=== PATIENT | female | born 2000 | race Caucasian/White ===

== ENCOUNTER 2023-11-12 17:56 | Emergency (ER) | payer BC ==
[~2023-11-12] VITALS: Ht 154.9 cm; Wt 68.0 kg
[2023-11-12 18:40] VITALS: BP 110/68; TEMP 98.2; O2SAT 98
[2023-11-12] MEDS ORDERED: FLUORESCEIN SODIUM OPHTH 1 EA STRIP ONE (19:43)
[2023-11-12] MEDS ORDERED: TETRAcaine 5 ML BOTTLE ONE (19:43)
[2023-11-12] MEDS: TETRAcaine 5 ML BOTTLE EACHEYE ONE (20:16)
== END 2023-11-12 20:48 | disposition home or self-care (01) ==
LOC: ER 17:58 → EDSEX 17:58 → ER 20:48
DX: S05.01XA Injury of conjunctiva and corneal abrasion without foreign body, right eye, initial encounter (principal); J45.909 Unspecified asthma, uncomplicated; X58.XXXA Exposure to other specified factors, initial encounter; Y93.89 Activity, other specified; Y92.89 Other specified places as the place of occurrence of the external cause; Y99.8 Other external cause status
CPT/HCPCS: A4217